=== PATIENT | male | born 1955 | race Caucasian/White ===

== ENCOUNTER 2020-05-08 07:27 | Outpatient (CLI) | payer BC, SELFPAY ==
--- NOTE | ~2020-05-08 | US_ITS ---
US abdomen complete EXAMINATION: US Abdomen Complete INDICATION: Abdomen pain PROCEDURE: Realtime High Resolution abdomen ultrasound. COMPARISON: No prior studies for comparison FINDINGS: There are gallstones with gallbladder wall thickening. Common bile duct measures 7.3 mm. Liver echotexture is increased, consistent with fatty infiltration with sparing at the gallbladder fo ssa.. Pancreas within normal limits. Pancreatic tail is obscured by bowel gas. Spleen is unremarke able. Renal echotexture is within normal limits bilaterally without hydronephrosis, contour deforming mass or renal stone. Right kidney measures 10.8 cm. Left kidney measures 10.8 cm. Visualized aspects of the aorta and IVC are within normal limits. Portal vein is patent. No sonograph ic Talley's sign indicated by the technologist. IMPRESSION: 1: Cholelithiasis with mild gallbladder wall thickening and positive sonographic Talley sign as well as mildly dilated common duct. Findings suspicious for cholecystitis. Correlate clinically. 2: Hepatic steatosis. Reviewed, dictated and finalized at location A. IMPRESSION: 1: Cholelithiasis with mild gallbladder wall thickening and positive sonographi c Talley sign as well as mildly dilated common duct. Findings suspicious for ch olecystitis. Correlate clinically. 2: Hepatic steatosis.
[2020-05-08 08:23] LABS: Basophils Absolute Auto 0.1 K/mm3 (0.0-0.1); Basophils Percent Auto 0.5 % (0.2-1.2); Eosinophils Absolute Auto 0.3 K/mm3 (0-0.3); Eosinophils Percent Auto 2.2 % (0-4.4); Hematocrit 39.2 % (42.0-52.0); Immature Granulocyte Absolute 0.05 K/mm3 (0.00-0.031); Immature Granulocyte Percent A 0.4 % (0-0.5); Lymphocytes Absolute Auto 2.23 K/mm3 (0.9-3.2); Lymphocytes Percent Auto 18.5 % (18.3-44.2); Mean Corpuscular HGB Conc 33.2 g/dl (32-36); Mean Corpuscular Volume 84.5 fl (80-100); Mean Platelet Volume 10.2 fl (7.4-10.4); Monocytes Percent Auto 8.3 % (2.6-8.5); Neutrophils Absolute Auto 8.5 K/mm3 (1.3-6.7); Neutrophils Percent Auto 70.1 % (45.5-73.1); Platelet Count Result 262 k/mm3 (150-375); Red Blood Count 4.64 M/mm3 (4.6-6.20); Red Cell Distribution Width 13.8 % (11.5-14.5); White Blood Count 12.1 K/mm3 (4.5-10.0)
[2020-05-08 08:34] LABS: Alanine Aminotransferase 277 U/L (4-50); Alkaline Phosphatase 166 U/L (38-126); Amylase 54 U/L (30-110); Anion Gap 8 mmol/L (8-16); Aspartate Amino Transferase 47 U/L (17-59); Bilirubin,Total 0.7 mg/dL (0.2-1.3); Blood Urea Nitrogen 13 mg/dL (9-20); Calcium 9.1 mg/dL (8.4-10.2); Carbon Dioxide 25 mmol/L (22-30); Chloride 106 mmol/L (98-107); Estimated Glomerular Filt Rate > 60; Glucose 110 mg/dL (75-110); Lipase 94 U/L (23-300); Potassium 3.8 mmol/L (3.4-5.0); Sodium 139 mmol/L (137-145)
== END 2020-05-08 07:28 | disposition home or self-care (01) ==
PROVIDERS: PCP Family Medicine; Visit Provider Nurse Practitioner Family
DX: R10.10 Upper abdominal pain, unspecified (principal); R50.9 Fever, unspecified
CPT/HCPCS: 36415; 76700; 80053; 82150; 83690; 85025

== ENCOUNTER 2020-05-14 12:48 | Outpatient (CLI) | payer BC, SELFPAY ==
--- NOTE | 2020-05-14 13:26 | ECG_ITS ---
Measurements Intervals [place] Rate: 63 P: -6 OR: 146 QRS: 20 QRSD: 102 T: 13 QT: 381 QTc: 392 Interpretive Statements SINUS RHYTHM BASELINE ARTIFACT- I, II, AVR, AVF, V6 NORMAL ECG Electronically Signed On 05-14-2020 13:36:50 CDT by Saman Villagran D.O.
[2020-05-14 13:58] LABS: Alanine Aminotransferase 57 U/L (4-50); Albumin Level 4.4 g/dL (3.5-5.1); Alkaline Phosphatase 142 U/L (38-126); Amylase 74 U/L (30-110); Aspartate Amino Transferase 30 U/L (17-59); Bilirubin,Total 0.3 mg/dL (0.2-1.3); Lipase 238 U/L (23-300)
== END 2020-05-14 12:49 | disposition home or self-care (01) ==
PROVIDERS: PCP Family Medicine; Visit Provider Surgery
DX: Z01.818 Encounter for other preprocedural examination (principal); K80.00 Calculus of gallbladder with acute cholecystitis without obstruction
CPT/HCPCS: 36415; 80076; 82150; 83690; 86850; 86900; 86901; 93005

== ENCOUNTER 2020-05-15 01:56 | Day surgery (SDC) | payer BC, SELFPAY ==
[2020-05-14 13:15] VITALS: BMI 37.0
[2020-05-14 13:22] VITALS: BP 125/69; PULSE 67; RESP 16; TEMP 36.9; O2SAT 98
[2020-05-14 13:30] VITALS: BP 125/69; PULSE 67; RESP 16; TEMP 36.8; O2SAT 98
[2020-05-15] VITALS (7 sets, daily range): BP systolic 120–164; BP diastolic 62–101; PULSE 64–81; RESP 12–16; TEMP 36.4–36.5; O2SAT 95–100
[2020-05-15] MEDS: ACETAMINOPHEN 500 MG TABLET 1000 MG PO (07:44)
[2020-05-15] MEDS: LACTATED RINGERS 1,000 ML 30 ML IV CONT (07:46)
[2020-05-15] MEDS: KETOROLAC 15 MG/ML VIAL (*BKC) IV PUSH (07:47)
--- NOTE | 2020-05-15 08:03 | WPDANESEPPF ---
Anes - Initial Pre Proc Eval Procedure: Operation Date: 05/15/20 08:30 Proposed Procedures p Laparoscopic Cholecystectomy - Danny Maharaj MD Date/Time: 05/15/20 08:03 Surgeon: Danny Maharaj MD Pre Op Diagnosis: acute cholecystitis with cholelithiasis Patient Data Age: 64 Gender: M Height: 5 ft 8 in Weight: 110.7 kg Last Vital Signs Temp 98.2 F 05/14/20 13:30 Pulse 67 05/14/20 13:30 Resp 16 05/14/20 13:30 BP 125/69 05/14/20 13:30 Pulse Ox 98 05/14/20 13:30 Allergies Allergy/AdvReac Type Severity Reaction Status Date / Time No Known Allergies Allergy Verified 05/15/20 07:35 Home Medications Medication Instructions Recorded Confirmed Type No Home Medications 05/07/20 05/15/20 History Patient hx anesthesia problems: none Family hx anesthesia problems: none PMFSH Past Medical History Medical History No pertinent past medical history Surgical History Surgical History History of colonoscopy History of right hip replacement Family History Family History Sibling Diabetes mellitus Grandparent Diabetes mellitus Social History Social History Smoking status: Never smoker Alcohol intake: never Substance use: never Living arrangements: with family Additional occupation/education comments: Teacher Gender identity (if verbalized by the patient): Male Spiritual care concerns: No Anes - Eval Final PreProcedure Day of Procedure 05/15/20 08:03 Patient weight: obese Heart: regular rate and rhythm Lungs: clear to auscultation Airway: Mallampati scale class III Neurological: alert and oriented Last oral intake: >/= 8 hours ASA classification: II Emergent: no Anesthetic plan: proceed Anesthesia type and monitoring: general ETT and standard monitoring Informed Consent: The patient's anesthetic plan and its attendant risks and benefits were discussed with the patient/family/POA. Questions were solicited and answers provided to the satisfaction of the patient/family/POA.
--- NOTE | 2020-05-15 08:09 | WPDHPUPDATE1 ---
History and Physical Update Update Date/Time: 05/15/20 08:09 History and Physical has been reviewed, including an updated exam of the patient. There are NO changes in the patient's condition. Risks, benefits, and alternatives have been discussed and questions answered. Patient agrees to proceed with procedure.
[2020-05-15] MEDS: ceFAZolin 2 GM/D5W 50 ML 2 GM/50 ML BAG IVPB (08:18)
[2020-05-15] MEDS: BUPIVACAINE/EPINEPHRINE 0.5% 30 ML VIAL INFILTRATE (08:57)
--- NOTE | 2020-05-15 09:36 | P.OP_ITS ---
Procedure Note - Detailed Date of procedure: 05/15/20 Pre-op diagnosis: acute cholecystitis with cholelithiasis Cholecystitis, cholelithiasis Post-op diagnosis: same Procedure performed: Laparoscopic cholecystectomy Description of procedure: The patient was taken to surgery and induced into general anesthesia. The abdomen was prepped and draped. Trocars were placed in the usual fashion using 0.5% Marcaine with epinephrine and applied Medical optical trocars. A 5 millimeter camera was used. The gallbladder was decompressed with a laparoscopic aspirator. The cholecystotomy was closed with a Vicryl endo-loop. There was surprisingly little inflammation in the gallbladder. Some edema suggestive of acute inflammation was evident but no severe inflammation at all. No large stones were evident and in fact I really could not see any stones although the gallbladder was not opened. The gallbladder was retracted anterosuperiorly. Traction was placed on the infundibulum. The cystic duct and cystic artery were dissected out very clearly. The gallbladder was dissected off the liver at its lower 3rd. Critical view was achieved. We securely clipped and divided the cystic duct and cystic artery. The gallbladder was then further retracted so that the peritoneal attachments to the liver could be divided. Once the gallbladder was freed entirely, it was placed in an Endo-Catch bag and retrieved through the 10 11 epigastric trocar site. The epigastric trocar was then replaced. We reviewed the right upper quadrant. It was irrigated and suctioned. All looked good with no evidence of bleeding or bile leakage. We evacuated CO2 and removed the trocar sleeves. Skin wounds were closed with subcuticular 4 O Monocryl skin suture. The wounds were dressed with Exofin surgical adhesive. Patient was awakened and taken to recovery in good condition. Sponge and needle counts were correct x2. Anesthesia: GETA and local (0.5% Marcaine with epinephrine) Surgeon: Danny Maharaj MD Medical Physics Teacher: Carmen THOMAS Estimated blood loss (mL): 5 Drains: No Packing: No Pathology: yes (Gallbladder) Complications: None Condition: stable Disposition: PACU Findings: Mild chronic inflammation, no gallstones noted. No biliary ductal dilatation, hepatic steatosis noted.
== END 2020-05-15 10:40 | disposition home or self-care (01) ==
PROVIDERS: PCP Family Medicine; Visit Provider Surgery
PROC: 0FT44ZZ Resection of Gallbladder, Percutaneous Endoscopic Approach (ICD-10-PCS; CPT 47562; principal; 2020-05-15 08:30)
DX: K80.10 Calculus of gallbladder with chronic cholecystitis without obstruction (principal); E66.9 Obesity, unspecified; Z68.37 Body mass index [BMI] 37.0-37.9, adult
CPT/HCPCS: 47562; 36415; 80076; 82150; 83690; 86850; 86900; 86901; 88304; 93005; A9270; C1713; J0330; J0690; J1100; J1885; J2250; J2370; J2405; J2704; J2710; J3010; J7030; J7120

== ENCOUNTER → 2021-12-26 10:06 | Outpatient (CLI) | payer MEDICARE, SELFPAY ==
--- NOTE | ~2021-12-26 | XR_ITS ---
EXAMINATION: XR lumbar spine 2-3V DATE: 12/26/2021 10:23 INDICATION: Right flank pain TECHNIQUE: Anteroposterior and lateral views of the lumbar spine, and cone-down lateral view of the l umbosacral junction were obtained. COMPARISON: None. FINDINGS: There are 2 mm of anterolisthesis of L4 on L5 and 2 mm of retrolisthesis of L5 on S1. Verte bral body alignment is otherwise normal. The vertebral body heights are maintained. There is no fract ure. There is mild loss of intervertebral disc space height throughout the lumbar spine. Small degene rative osteophytes project from the anterior endplates of multiple vertebral bodies. There is severe facet joint osteoarthritis of the lower lumbar spine. Changes of total right hip arthroplasty are not ed. Surgical clips in the right upper quadrant are likely from prior cholecystectomy. Calcifications measuring 3 mm and 2 mm projecting over the right kidney likely reflect stones. There is a 3 mm calci fication projecting over the left kidney lower pole, also likely a stone. IMPRESSION: 1. Mild lumbar spondylosis without acute findings. 2. Probable bilateral nephrolithiasis. Reviewed, dictated and finalized at location B. TECHNICIAN
--- NOTE | ~2021-12-26 | XR_ITS ---
EXAMINATION: XR abdomen/kub 1V INDICATION: Right flank pain TECHNIQUE: Supine views of the abdomen were obtained on 2 radiographs. COMPARISON: None FINDINGS: Calcifications measuring 3 mm and 2 mm projecting over the right kidney likely reflect ston es. There is a 3 mm calcification projecting over the left kidney lower pole, also likely a stone. No definite stones are identified along the expected courses of the ureters. Surgical clips in the righ t upper quadrant are likely from prior cholecystectomy. There are changes of total right hip arthropl asty. The bowel gas pattern is normal. There is moderate osteoarthritis of the left hip. IMPRESSION: 1. Probable bilateral nephrolithiasis. Reviewed, dictated and finalized at location B. COMMUNICATIONS OPERATOR
== END ==
PROVIDERS: PCP Family Medicine; Visit Provider Nurse Practitioner Family
DX: M54.50 Low back pain, unspecified (principal); M47.816 Spondylosis without myelopathy or radiculopathy, lumbar region; R31.9 Hematuria, unspecified
CPT/HCPCS: 72100; 74018

== ENCOUNTER 2022-01-02 15:55 | Outpatient (CLI) | payer MEDICARE, SELFPAY ==
--- NOTE | ~2022-01-02 | CT_ITS ---
EXAMINATION: CT abdomen pelvis wo con DATE: 01/02/2022 16:13 INDICATION: Hematuria. Bilateral flank pain. TECHNIQUE: Computed tomography (CT) of the abdomen and pelvis was performed without intravenous contr ast. Automated exposure control and iterative reconstruction technique were employed. The dose-length product was 1529.94 mGy-cm. COMPARISON: None. FINDINGS: The visualized portions of the lung bases demonstrate minimal atelectasis. No pleural effus ion. The heart size is normal. There are coronary artery calcifications. No pericardial effusion. The liver is normal. There are changes of cholecystectomy. The spleen, pancreas, and adrenal glands are normal. There are 4 stones in right kidney measuring up to 7 mm. There are 1 mm and 4 mm stones in le ft kidney. There is an 8 mm cyst in left kidney. There is a 3 mm hemorrhagic cyst in left kidney. The prostate is mildly enlarged. There is a left inguinal hernia containing fat. There is diverticulosis of the colon without evidence of diverticulitis. The appendix is normal. There are no dilated loops of bowel. There are no pathologically enlarged lymph nodes. There is no free intraperitoneal fluid. T here is a total right hip arthroplasty. There is mild lumbar spondylosis. There are bridging endplate osteophytes at multiple levels in the thoracic spine, consistent with diffuse idiopathic skeletal hy perostosis (DISH). IMPRESSION: 1. Bilateral nonobstructing kidney stones. Reviewed, dictated and finalized at location A. T MANAGER
== END 2022-01-02 15:56 | disposition home or self-care (01) ==
LOC: ANHIMG 15:57
PROVIDERS: PCP Family Medicine; Visit Provider Nurse Practitioner Family
DX: R31.9 Hematuria, unspecified (principal); N20.0 Calculus of kidney
CPT/HCPCS: 74176

== ENCOUNTER 2022-01-27 08:52 | Outpatient (CLI) | payer MEDICARE, SELFPAY ==
[2022-01-27 09:57] LABS: Prothrombin Time 13.2 Seconds (11.1-14.7)
[2022-01-27 09:58] LABS: Partial Thromboplastin Time 27.1 SECONDS (22.3-36.8)
== END 2022-01-27 08:53 | disposition home or self-care (01) ==
PROVIDERS: PCP Family Medicine; Visit Provider Urology
DX: Z01.818 Encounter for other preprocedural examination (principal); N20.0 Calculus of kidney
CPT/HCPCS: 36415; 85610; 85730; 87086

== ENCOUNTER 2022-01-31 00:14 | Day surgery (SDC) | payer MEDICARE, SELFPAY ==
--- NOTE | 2022-01-23 09:42 | PC.NURSE ---
Report to the Outpatient Waiting Room, entrance under the green pavilion located off [address], at time __1100 on date __01/31/22 . Planned Procedure Time: _1300 . Time changes happen often and if your time is changed the preop area will call you the afternoon before. - You and your visitor will be asked to self-screen and do not enter if you have any COVID symptoms. - Only one visitor is requested with a max of two and NO children visitors are allowed at this time. - The patient visitor may be requested to leave or wait in car when not with patient due to distancing restrictions. - A mask is optional within the hospital. Patients may have clear liquids (water, carbonated beverages, clear teas, apple juice) until 3 hours prior to surgery with a maximum of 20 ounces. - No food from midnight until time of surgery - Infants may have breast milk until 4 hours before surgery, formula 6 hours prior to surgery. - Children will be allowed to drink immediately following surgery. If applicable, please bring a bottle or sippy cup to assist with drinking. Juice, water, soda, and popsicles are readily available. For infants on formula, please bring formula the day of surgery. Pacifiers are allowed. Take the following medications with a SIP of water the morning of surgery: __NONE Medications to discontinue per physician ____ALL VITAMINS 3 DAYS PRE OP Date to take last dose___01/27/22 Please no make-up, nail turkish, hairspray, perfume, deodorant, or body powder the day of surgery. No jewelry (including any body piercings) or valuables the day of surgery, leave them at home. Please take a shower or bath the night before, or the morning of, surgery with an antibacterial soap. Wear comfortable, loose fitting clothing. Children are encouraged to wear pajamas. - Jewelry must be removed prior to entering the operating room. Rings and piercings that are not removed may be cut off. - The hospital will not accept responsibility for valuables. - Please leave all valuables, including medications, at home the day of surgery. If you are going home after surgery, a licensed cdl flatbed truck driver must drive you home. - NO public transportation without another adult if you receive anesthesia. - We recommend that an adult stay with you for 24 hours following discharge. - We also recommend that you do not drive, make important decision, drink alcoholic beverages, or take any drugs that were not prescribed by your health care provider for at least 24 hours after your discharge time. Follow any additional instructions given to you from your surgeon. If you or anyone in your household have experienced Covid symptoms in the past week, please notify your surgeon or the nurse liaison at the phone number below for possible testing. Telephone instructions given to __PATIENT and asked if any additional questions and then verbalized understanding. Patient advised to call surgeon office or pre surgery nurse liaison [phone] if any additional questions.
[2022-01-23 09:51] VITALS: BMI 37.5
[2022-01-31] VITALS (8 sets, daily range): BP systolic 108–147; BP diastolic 59–75; PULSE 68–77; RESP 12–17; TEMP 36.4–37.5; O2SAT 97–98
--- NOTE | ~2022-01-31 | XR_ITS ---
EXAMINATION: XR abdomen/kub 1V DATE: 01/31/2022 10:12 INDICATION: Right kidney stone. TECHNIQUE: A supine view of the abdomen on 2 radiographs was obtained. COMPARISON: CT abdomen and pelvis 01/02/2022 FINDINGS: There are no dilated loops of bowel. There are 6 mm, 2 mm, and 4 mm stones in right kidney cyst. There is a total right hip arthroplasty. Surgical clips in the right upper quadrant are likely from cholecystectomy. IMPRESSION: 1. Right kidney stones. Reviewed, dictated and finalized at location A. OMER SERVICE REPRESENTATIVE TEACHER IMPRESSION: 1. Right kidney stones.
--- NOTE | 2022-01-31 07:16 | WPDHPUPDATE1 ---
History and Physical Update Update Date/Time: 01/31/22 07:16 History and Physical has been reviewed, including an updated exam of the patient. There are NO changes in the patient's condition. Risks, benefits, and alternatives have been discussed and questions answered. Patient agrees to proceed with procedure.
[2022-01-31] MEDS: LACTATED RINGERS 1,000 ML 30 ML IV CONT (10:30)
--- NOTE | 2022-01-31 11:16 | P.PNAN_ITS ---
Anes - Initial Pre Proc Eval Procedure: Operation Date: 01/31/22 12:00 Proposed Procedures p Right Extracorporeal Shock Wave Lithotripsy - Jordy Jones MD Date/Time: 01/31/22 11:16 Surgeon: Jordy Jones MD Pre Op Diagnosis: Kole Kidney Stones Patient Data Age: 66 Gender: M Height: 1.75 m Weight: 115.8 kg Last Vital Signs Temp 36.4 C L 01/31/22 10:24 Pulse 72 01/31/22 10:24 Resp 16 01/31/22 10:24 BP 147/74 H 01/31/22 10:24 Pulse Ox 98 01/31/22 10:24 O2 Del Method Room Air 01/31/22 10:24 Allergies Allergy/AdvReac Type Severity Reaction Status Date / Time No Known Allergies Allergy Verified 01/31/22 10:13 Home Medications Medication Instructions Recorded Confirmed Type multivit,Ca,min-iron 8 mg-folic 1 tablet PO DAILY 01/23/22 01/31/22 History acid 200 mcg-lycopene 600 mcg tablet (Centrum Men) Patient hx anesthesia problems: none Family hx anesthesia problems: none Results Review: All pre-operative results and documents have been reviewed as part of the pre- operative evaluation. [facility] Past Medical History Medical History Adult BMI 39.0-39.9 kg/sq m BMI 38.0-38.9,adult BMI greater than 40 No pertinent past medical history Surgical History Surgical History History of colonoscopy History of right hip replacement Hx laparoscopic cholecystectomy Family History Family History Sibling Diabetes mellitus Grandparent Diabetes mellitus Father Asthma Mother Tobacco abuse Social History Social History Smoking status: Never smoker Second hand tobacco smoke exposure: Yes Alcohol intake: never Substance use: never Substance use type: does not use Living arrangements: with family Additional occupation/education comments: Teacher Gender identity (if verbalized by the patient): Male Sexual Orientation (if Verbalized by the Patient): Straight or Heterosexual Spiritual care concerns: No Anes - Eval Final PreProcedure Day of Procedure 01/31/22 11:16 Patient weight: obese Heart: regular rate and rhythm Lungs: clear to auscultation Airway: Mallampati scale class II Neurological: alert and oriented Last oral intake: >/= 8 hours ASA classification: II Emergent: no Anesthetic plan: proceed Anesthesia type and monitoring: general LMA and standard monitoring Results Review: All pre-operative results and documents have been reviewed as part of the pre- operative evaluation. Informed Consent: The patient's anesthetic plan and its attendant risks and benefits were discussed with the patient/family/POA. Questions were solicited and answers provided to the satisfaction of the patient/family/POA.
[2022-01-31] MEDS: ceFAZolin 2 GM/D5W 50 ML 2 GM/50 ML BAG IVPB (11:24)
--- NOTE | 2022-01-31 11:47 | W.PM.PROC2 ---
Procedure Note - Detailed Date of Procedure 01/31/22 Pre-op Diagnosis Kole Kidney Stones Post-op Diagnosis Same Procedure Performed Right ESWL Surgeon Jordy Jones MD Anesthesia General Description of Procedure The patient was brought to the operative suite where he was placed in the supine position on the Dornier lithotripsy table. The focal point of the lithotripter was placed at a 6mm right renal calculus. A total of 2500 shocks were delivered at a power setting of 4. There appeared to be good fragmentation of the stone. Careful inspection of other areas in right kidney failed to show additional stones. The patient tolerated the procedure well and was taken to the recovery room in good condition. Drains No Packing No Pathology None sent Complications No immediate complications Condition Stable
== END 2022-01-31 13:50 | disposition home or self-care (01) ==
PROVIDERS: PCP Family Medicine; Visit Provider Urology
PROC: (CPT 50590; principal; 2022-01-31 12:00)
DX: N20.0 Calculus of kidney (principal)
CPT/HCPCS: 50590; 74018; J0690; J1100; J2250; J2405; J2704; J7120

== ENCOUNTER 2023-01-29 10:35 | Outpatient (CLI) | payer MEDICARE, SELFPAY ==
--- NOTE | ~2023-01-29 | XR_ITS ---
Right Knee Technique: AP, lateral, and sunrise views were obtained. Clinical History: Arthritis Findings: No fracture or dislocation is seen. There is severe degenerative change of the medial jase rtment, with medial joint osteophyte formation and medial compartment narrowing. There is moderate de generative change of the patellofemoral compartment. There is mild degenerative change of the lateral compartment. Soft tissues are unremarkable. No joint effusion is seen. Impression: Tricompartmental osteoarthritis, as detailed above, worst in the medial compartment. Reviewed, dictated and finalized at location M. LE PERSON Impression: Tricompartmental osteoarthritis, as detailed above, worst in the medial compart ment.
--- NOTE | ~2023-01-29 | XR_ITS ---
Left Knee Technique: AP, lateral, and sunrise views were obtained. Clinical History: Arthritis Findings: No fracture or dislocation is seen. There is severe degenerative change of the medial jase rtment, with medial joint space narrowing and severe medial joint line osteophyte formation. There is moderate spurring of the lateral joint line and patellofemoral compartment.. Prominent subchondral o ssify present at the lateral femoral condyle Soft tissues are unremarkable. No joint effusion is seen . Impression: Advanced tricompartmental osteoarthritis, as detailed above, worst in the medial compartment. Reviewed, dictated and finalized at location M. LATORY LAW SPECIALIST Impression: Advanced tricompartmental osteoarthritis, as detailed above, worst in the media l compartment.
== END 2023-01-29 10:36 | disposition home or self-care (01) ==
PROVIDERS: PCP Family Medicine; Visit Provider Family Medicine
DX: M17.0 Bilateral primary osteoarthritis of knee (principal)
CPT/HCPCS: 73564

== ENCOUNTER 2023-03-11 12:21 | Outpatient (CLI) | payer MEDICARE, SELFPAY ==
--- NOTE | ~2023-03-11 | CT_ITS ---
EXAMINATION: CT LE LT wo con DATE: 03/11/2023 13:14 INDICATION: Left knee osteoarthritis. Preoperative planning. TECHNIQUE: Computed tomography (CT) of the left lower limb was performed without intravenous contrast . Automated exposure control and iterative reconstruction technique were employed. The dose-length pr oduct was 1752.29 mGy-cm. COMPARISON: Left knee radiographs 01/29/2023 FINDINGS: There is varus angulation at the knee. No fracture. There is severe osteoarthritis of the m edial and patellofemoral compartments and moderate osteoarthritis of lateral compartment. No knee laurel nt effusion. There is moderate left hip osteoarthritis. IMPRESSION: 1. Severe left knee osteoarthritis. 2. Moderate left hip osteoarthritis. Reviewed, dictated and finalized at location E. OSOPHY LECTURER
--- NOTE | 2023-03-11 13:23 | ECG_ITS ---
Measurements Intervals [place] Rate: 64 P: 8 SD: 148 QRS: 28 QRSD: 103 T: 25 QT: 390 QTc: 404 Interpretive Statements SINUS RHYTHM NORMAL ECG COMPARED TO ECG 05/14/2020 14:00:35 NO SIGNIFICANT CHANGES Electronically Signed On 03-11-2023 13:43:34 INVESTOR RELATIONS ASSOCIATE by Saman Villagran D.O.
[2023-03-11 14:08] LABS: Hematocrit 44.3 % (42.0-52.0); Hemoglobin 14.5 g/dL (14.0-18.0)
[2023-03-11 14:27] LABS: Albumin Level 4.6 g/dL (3.5-5.1); Estimated Glomerular Filt Rate > 60; Glucose 91 mg/dL (65-110)
== END 2023-03-11 12:22 | disposition home or self-care (01) ==
LOC: ANHIMG 12:28
PROVIDERS: PCP Family Medicine; Visit Provider Orthopaedic Surgery
DX: J40 Bronchitis, not specified as acute or chronic (principal); M17.12 Unilateral primary osteoarthritis, left knee; M16.12 Unilateral primary osteoarthritis, left hip
CPT/HCPCS: 36415; 73700; 82040; 82565; 82947; 85014; 85018; 93005

== ENCOUNTER 2023-05-20 11:44 | Outpatient (CLI) | payer MEDICARE, SELFPAY ==
[2023-05-20 12:50] LABS: Basophils Percent Auto 0.5 % (0.2-1.2); Eosinophils Absolute Auto 0.1 K/mm3 (0-0.3); Eosinophils Percent Auto 2.3 % (0-4.4); Hemoglobin 14.8 g/dL (14.0-18.0); Immature Granulocyte Absolute 0.02 K/mm3 (0.00-0.031); Immature Granulocyte Percent A 0.3 % (0-0.5); Lymphocytes Absolute Auto 2.28 K/mm3 (0.9-3.2); Lymphocytes Percent Auto 37.3 % (18.3-44.2); Mean Corpuscular HGB Conc 32.2 g/dl (32-36); Mean Corpuscular Hemoglobin 28.8 pg (26-34); Mean Corpuscular Volume 89.5 fl (80-100); Mean Platelet Volume 10.1 fl (7.4-10.4); Monocytes Absolute Auto 0.5 K/mm3 (0.1-0.6); Monocytes Percent Auto 8.8 % (2.6-8.5); Neutrophils Absolute Auto 3.1 K/mm3 (1.3-6.7); Neutrophils Percent Auto 50.8 % (45.5-73.1); Platelet Count Result 275 k/mm3 (150-375); Red Blood Count 5.14 M/mm3 (4.6-6.20); Red Cell Distribution Width 12.9 % (11.5-14.5); White Blood Count 6.1 K/mm3 (4.5-10.0)
[2023-05-20 13:04] LABS: Albumin Level 4.6 g/dL (3.5-5.1); Estimated Glomerular Filt Rate > 60; Glucose 89 mg/dL (65-110)
[2023-05-20 13:07] LABS: Urine Cotinine NEGATIVE
[2023-05-20 14:00] LABS: MRSA (PCR) NOT DETECTED (NOT DETECTE)
[2023-05-21 01:00] LABS: Hemoglobin A1C 5.4 % (<5.7)
== END 2023-05-20 11:45 | disposition home or self-care (01) ==
LOC: ANHSURGERY 11:49
PROVIDERS: PCP Family Medicine; Visit Provider Orthopaedic Surgery
DX: Z01.818 Encounter for other preprocedural examination (principal); M17.12 Unilateral primary osteoarthritis, left knee
CPT/HCPCS: 80307; 82040; 82565; 82947; 83036; 85025; 87641

== ENCOUNTER 2023-06-15 02:29 | Day surgery (SDC) | payer MEDICARE, SELFPAY ==
[2023-05-20 11:54] VITALS: BMI 35.4
--- NOTE | 2023-05-20 12:12 | PC.NURSE ---
Report to the Outpatient Waiting Room, entrance under the green pavilion located off [facility], at time __1000 on date __06/15/23 . Planned Procedure Time: __1200 . Time changes happen often and if your time is changed the preop area will call you the afternoon before. - You and your visitor will be asked to self-screen and do not enter if you have any COVID symptoms. - A mask is optional within the hospital at this time. Patients may have clear liquids (water, carbonated beverages, clear teas, apple juice) until 3 hours prior to surgery( 9:00 AM) with a maximum of 20 ounces. - No food from midnight until time of surgery - Infants may have breast milk until 4 hours before surgery, formula 6 hours prior to surgery. - Children will be allowed to drink immediately following surgery. If applicable, please bring a bottle or sippy cup to assist with drinking. Juice, water, soda, and popsicles are readily available. For infants on formula, please bring formula the day of surgery. Pacifiers are allowed. Take the following medications with a SIP of water the morning of surgery: ____NONE DO NOT STOP ANY OF YOUR OTHER PRESCRIPTION MEDICATIONS PRIOR TO SURGERY ?EXCEPT THE FOLLOWING Medications to discontinue per physician ____MAY TAKE TYLENOL IF NEEDED FOR PAIN Please no make-up, nail kuwaiti, hairspray, perfume, deodorant, or body powder the day of surgery. No jewelry (including any body piercings) or valuables the day of surgery, leave them at home. Please take a shower or bath the night before, or the morning of, surgery with an antibacterial soap. Wear comfortable, loose fitting clothing. Children are encouraged to wear pajamas. - Jewelry must be removed prior to entering the operating room. Rings and piercings that are not removed may be cut off. - The hospital will not accept responsibility for valuables. - Please leave all valuables, including medications, at home the day of surgery. If you are going home after surgery, a licensed tractor trailer truck driver must drive you home. - NO public transportation without another adult if you receive anesthesia. - We recommend that an adult stay with you for 24 hours following discharge. - We also recommend that you do not drive, make important decision, drink alcoholic beverages, or take any drugs that were not prescribed by your health care provider for at least 24 hours after your discharge time. Follow any additional instructions given to you from your surgeon. If you or anyone in your household have experienced Covid symptoms in the past week, please notify your surgeon or the nurse liaison at the phone number below for possible testing. VERBAL AND WRITTEN instructions given to __PATIENT AND SPOUSE CINDY and asked if any additional questions and then verbalized understanding. Patient advised to call surgeon office or pre surgery nurse liaison [phone] if any additional questions.
[2023-05-20 12:32] VITALS: BP 146/83; PULSE 65; RESP 18; TEMP 36.7; O2SAT 98
[2023-06-15] VITALS (12 sets, daily range): BP systolic 109–161; BP diastolic 40–80; PULSE 65–91; RESP 12–20; TEMP 36.2–36.7; O2SAT 94–100
--- NOTE | ~2023-06-15 | XR_ITS ---
EXAMINATION: [id number]_[id number]_CR DATE: 06/15/2023 15:34 CDT INDICATION: Left total knee arthroplasty TECHNIQUE: 2 views left knee FINDINGS: There is a left total knee arthroplasty in expected position. Subcutaneous gas with fluid and air in the joint and overlying skin seble are consistent with recent surgery. No evidence of pe riprosthetic fracture. IMPRESSION: 1. Recent left total knee arthroplasty. Reviewed, dictated and finalized at location B.
[2023-06-15] MEDS: LACTATED RINGERS 1,000 ML 30 ML IV CONT ×2 (11:00→15:12)
[2023-06-15] MEDS: ACETAMINOPHEN 500 MG TABLET 1000 MG PO (11:14)
[2023-06-15] MEDS: TRANEXAMIC ACID 1,000MG/ISO100 1,000 MG/100 ML BAG 200 MG IVPB (11:14)
--- NOTE | 2023-06-15 11:23 | WPDHPUPDATE1 ---
History and Physical Update Update Date/Time: 06/15/23 11:23 History and Physical has been reviewed, including an updated exam of the patient. There are NO changes in the patient's condition. Risks, benefits, and alternatives have been discussed and questions answered. Patient agrees to proceed with procedure.
--- NOTE | 2023-06-15 11:34 | WPDANESEPPF ---
Anes - Initial Pre Proc Eval Procedure: Operation Date: 06/15/23 12:00 Proposed Procedures p Left Custom Total Knee Arthroplasty - Mayito Matias MD Date/Time: 06/15/23 11:34 Surgeon: Mayito Matias MD Pre Op Diagnosis: Prim OA Lt Knee Patient Data Age: 67 Gender: M Height: 1.73 m Weight: 106.1 kg Last Vital Signs Temp 36.2 C L 06/15/23 11:11 Pulse 65 06/15/23 11:11 Resp 16 06/15/23 11:11 BP 144/73 H 06/15/23 11:11 Pulse Ox 97 06/15/23 11:11 O2 Del Method Room Air 06/15/23 11:11 Allergies Allergy/AdvReac Type Severity Reaction Status Date / Time No Known Allergies Allergy Verified 06/15/23 10:25 Home Medications Medication Instructions Recorded Confirmed Type acetaminophen 500 mg capsule 1,000 mg PO Q6H PRN Pain 05/20/23 06/15/23 History aspirin 81 mg tablet,delayed 81 mg PO BID 14 days #28 tabs 06/15/23 Rx release meloxicam 15 mg tablet 15 mg PO DAILY #30 tabs 06/15/23 Rx oxycodone-acetaminophen 5 mg-325 1 - 2 tablet PO Q4-6H PRN pain #30 06/15/23 Rx mg tablet tabs prednisone 5 mg tablet 5 mg PO DAILY 3 weeks #21 tabs 06/15/23 Rx Patient hx anesthesia problems: none Family hx anesthesia problems: none Results Review: All pre-operative results and documents have been reviewed as part of the pre-operative evaluation. [facility] Past Medical History Medical History Adult BMI 39.0-39.9 kg/sq m BMI 38.0-38.9,adult BMI greater than 40 Bronchitis No pertinent past medical history Osteoarthritis of left knee Osteoarthritis of right knee Surgical History Surgical History History of colonoscopy History of right hip replacement Hx laparoscopic cholecystectomy Family History Family History Sibling Diabetes mellitus Grandparent Diabetes mellitus Father Asthma Cancer Mother Tobacco abuse Lung cancer Social History Social History Smoking status: Never smoker Second hand tobacco smoke exposure: Yes Additional smoking assessment comments: DENIES ANY FORM OF TOBACCO USE Alcohol intake: never Substance use: never Substance use type: does not use Do You Feel Safe in your Home?: Yes Lack of Transportation: No Lack of Food: Never True Current Housing: I Have Housing Concerned About Future Housing: No Difficulty Paying Gas/Electric Bills: No Difficulty Paying for Meds: No Currently Unemployed: No Education: Master's Degree or Higher Difficulty w/ Childcare or Family Care: No Living arrangements: with family Occupation/Education: 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 (if verbalized by the patient): Male Sexual Orientation (if Verbalized by the Patient): Straight or Heterosexual Spiritual care concerns: No Anes - Eval Final PreProcedure Day of Procedure 06/15/23 11:34 Patient weight: obese Heart: regular rate and rhythm Lungs: clear to auscultation Airway: Mallampati scale class II Neurological: alert and oriented Last oral intake: >/= 8 hours ASA classification: II Emergent: no Anesthetic plan: proceed Anesthesia type and monitoring: general LMA and standard monitoring Results Review: All pre-operative results and documents have been reviewed as part of the pre-operative evaluation. Informed Consent: The patient's anesthetic plan and its attendant risks and benefits were discussed with the patient/family/POA. Questions were solicited and answers provided to the satisfaction of the patient/family/POA.
[2023-06-15] MEDS: ceFAZolin 2 GM/D5W 50 ML 2 GM/50 ML BAG IVPB ×2 (12:09→20:51)
--- NOTE | 2023-06-15 12:20 | WPDANESPNB ---
Anes - Peripheral Nerve Block Date/Time: 06/15/23 12:20 I have discussed with the patient/family/POA the placement of a peripheral nerve block for post-operative pain management, including associated risks, benefits, complications, and side effects. Alternative methods of post-operative analgesia were detailed. Questions were solicited and answers provided to the satisfaction of the patient/family/POA. Time-Out: A pre-procedural Time-Out was completed immediately before starting the procedure and confirmed: Patient Identification, Site, Procedure, Patient Position and the Availability of Requisite Equipment. Clinical Indications: Acute post-operative pain management requested by the operative surgeon. Nerve Block Insertion Note Anes-nerve block: adductor canal left Patient position: supine Skin prep: chlorhexidine Needle: 22 gauge, stimulating, insulated echogenic needle. Needle length: 80 mm Technique: ultrasound Injectate: bupivacaine 0.5% with epi 5 mcg/ml (30 no epi) Observations: tolerated well Complications: none Procedure start time:: 1155 Procedure end time:: 1202
[2023-06-15] MEDS: SODIUM CHLORIDE 0.9% IV 37.7 ML, MORPHINE SULFATE INJ (*CRX) 2 MG, ROPivacaine HCL 1% 2... INFILTRATE (12:41)
[2023-06-15] MEDS: GENTAMICIN BONE CEMENT REFOBACIN 1 EACH TOPICAL (14:20)
[2023-06-15] MEDS: TRANEXAMIC ACID 1,000 MG/10 ML AMPUL 1000 MG IV PUSH (14:50)
--- NOTE | 2023-06-15 16:50 | W.PM.PROC2 ---
Procedure Note - Detailed Date of Procedure 06/15/23 Pre-op Diagnosis Prim OA Lt Knee Post-op Diagnosis Same Procedure Performed Total knee arthroplasty, left. Surgeon Mayito Matias MD Anesthesia General and Regional (Subsartorial block.) Findings Moderate contracture. Varus deformity. No releases required. Description of Procedure Preoperative antibiotics were given. The limb was prepped and draped in the usual sterile fashion with a well-padded tourniquet high on the thigh. The limb was exsanguinated and the tourniquet inflated to 300 mmHg. A longitudinal incision was created just medial to the patella. A trivector approach to the knee was performed. Arthrotomy was taken down through the joint capsule. No significant releases were initially taken. The femur was exposed and the F1 jig was applied. The coring tool was used to remove the cartilage for the F2 jig to sit flush with the bone. The jig was pinned and the distal cut carefully taken. Caliper measurements confirmed appropriate bony resections according to the preoperative templated plan. The F4 cutting jig for the femur was applied, at the standard rotation. The AP and anterior chamfer cuts were taken. The F5 jig was applied and the posterior chamfer cuts were taken. The tibia was prepared using the T1 jig, after removing cartilage for the jig contact points. Proper alignment was checked with the alignment han. The tibia was cut using the T1u guide. Gap balancing was performed. Gap measurements were taken and the knee was trialed. Excellent alignment and soft tissue balancing was confirmed. The posterior cruciate ligament was recessed along the proximal tibia. The patella was cut for resurfacing. Three lug holes were drilled. Meniscal remnants were removed. The trial components were assembled. Excellent range of motion and proper soft tissue balancing were confirmed throughout the full range of motion. Patellar tracking was excellent. The knee was copiously irrigated periodically throughout the procedure. The real implants were cemented into position. Excess cement was carefully removed. The wound was closed in layers with interrupted #1 Vicryl suture, 2-0 strata fix suture, 0 strata fix suture, 2-0 strata fix suture. Steri-Strips placed on the skin with the knee flexed. Sterile bulky dressing applied. The patient was brought to the recovery room in stable condition. There were no complications. Implants Conformis Custom total knee arthroplasty. Cemented. Cruciate retaining. 6C insert. 38 mm oval patella. Estimated Blood Loss 50 Drains No Complications No immediate complications Condition Stable Disposition PACU [facility] Billing Surgery - Charge Forward: Surgery Billing
--- NOTE | 2023-06-15 16:54 | ADMGEN ---
This patient, Rodrick Harding, was admitted to Medical Room 345-01. Patient/family oriented to hospital policies and general routines including ID bracelet, bed and alarms, visiting hours, pain management, procedures, bathroom and other care routines, personal items, smoking policy, room service/diet, and visiting hours. Information on how to activate the Rapid Response Team has been discussed. Patient/Family are encouraged to report perceived risks to care and to ask questions if they do not understand what they are told or what they should do.
[2023-06-15] MEDS: ACETAMINOPHEN 325 MG TABLET 650 MG PO ×2 (18:08→23:12)
[2023-06-15] MEDS: ASPIRIN 81 MG ENTERIC TABLET PO (18:08)
[2023-06-15] MEDS: MELOXICAM 7.5 MG TABLET PO (18:09)
[2023-06-15] MEDS: predniSONE 5 MG TABLET PO (18:09)
[2023-06-15] MEDS: SENNA/DOCUSATE SODIUM TABLET 2 TAB PO (18:09)
[2023-06-15] MEDS: FAMOTIDINE 20 MG TABLET PO (20:51)
[2023-06-16] MEDS: ceFAZolin 2 GM/D5W 50 ML 2 GM/50 ML BAG IVPB ×2 (03:37→12:07)
[2023-06-16 05:41] VITALS: BP 137/59; PULSE 71; RESP 18; TEMP 36.3; O2SAT 96
[2023-06-16 05:44] LABS: Basophils Percent Auto 0.1 % (0.2-1.2); Hematocrit 39.1 % (42.0-52.0); Hemoglobin 12.6 g/dL (14.0-18.0); Immature Granulocyte Absolute 0.07 K/mm3 (0.00-0.031); Immature Granulocyte Percent A 0.5 % (0-0.5); Lymphocytes Absolute Auto 0.89 K/mm3 (0.9-3.2); Lymphocytes Percent Auto 5.7 % (18.3-44.2); Mean Corpuscular HGB Conc 32.2 g/dl (32-36); Mean Corpuscular Hemoglobin 28.6 pg (26-34); Mean Corpuscular Volume 88.9 fl (80-100); Mean Platelet Volume 10.1 fl (7.4-10.4); Monocytes Percent Auto 6.1 % (2.6-8.5); Neutrophils Absolute Auto 13.6 K/mm3 (1.3-6.7); Neutrophils Percent Auto 87.6 % (45.5-73.1); Platelet Count Result 246 k/mm3 (150-375); White Blood Count 15.5 K/mm3 (4.5-10.0)
[2023-06-16 05:57] LABS: Anion Gap 8 mmol/L (4-12); Blood Urea Nitrogen 20 mg/dL (9-20); Calcium 9.2 mg/dL (8.4-10.2); Carbon Dioxide 23 mmol/L (22-30); Chloride 106 mmol/L (98-107); Estimated CRCL calculation 69 ml/min; Estimated Glomerular Filt Rate > 60; Glucose 138 mg/dL (65-110); Potassium 4.6 mmol/L (3.4-5.0); Sodium 137 mmol/L (137-145)
[2023-06-16] MEDS: ACETAMINOPHEN 325 MG TABLET 650 MG PO ×2 (06:15→12:07)
[2023-06-16] MEDS: polyethylene glycoL 3350 17 GM POWD.PACK PO (09:35)
[2023-06-16] MEDS: ASPIRIN 81 MG ENTERIC TABLET PO (09:35)
[2023-06-16] MEDS: MELOXICAM 7.5 MG TABLET PO (09:35)
[2023-06-16] MEDS: SENNA/DOCUSATE SODIUM TABLET 2 TAB PO (09:35)
[2023-06-16] MEDS: FAMOTIDINE 20 MG TABLET PO (09:35)
[2023-06-16] MEDS: traMADol HCL (*CRX) 50 MG TABLET PO (09:37)
--- NOTE | 2023-06-16 10:04 | PM.DS ---
DS: Admitting Diagnosis Discharge Date 06/16/23 Admitting Diagnosis Knee arthritis. DS: Discharge Diagnosis Discharge Diagnosis (1) Status post total left knee replacement: Code(s): Z96.652 - Presence of left artificial knee joint Status: Acute Assessment and Plan: Postop day 1: Left total knee arthroplasty. Patient tolerated procedure well. No complications. Pain manageable with pain medication. No numbness or tingling. We had a lengthy discussion regarding postoperative wound care, limitations, expectations, and exercises. Patient shows good understanding. He has had initial physical therapy and is tolerating it well. DVT prophylaxis: 81 mg baby aspirin b.i.d. for 14 days. Pain medication: Percocet. Patient has followup appointment with Dr. Matias in 3 weeks. DS: Summary Hospital Course Reason for hospitalization: Total knee arthroplasty Hospital Course: Patient tolerated procedure well. Has had initial PT/OT. Status at Discharge Functional status at discharge: uses cane/walker Overall status at discharge: patient is progressing back to baseline Time Spent with Patient Time attestation: Total time spent providing and/or coordinating discharge services: Exam Narrative: 67-year-old overweight male. Resting comfortably in chair. Alert and oriented x3. No acute distress. Wearing compression socks bilaterally. Dressing intact without drainage. This has not changed since yesterday. Mild swelling. No ecchymosis. No erythema. No hematoma. Range of motion limited due to pain. Calf nontender. Neurologic status intact. No varicosities. Distal pulses palpable. DS: Data Data Completed and Pending Labs on day of discharge: Labs from last 24 hours 06/16/23 06/15/23 05:32 10:53 WBC 15.5 H RBC 4.40 L Hgb 12.6 L Hct 39.1 L MCV 88.9 MCH 28.6 MCHC 32.2 RDW 13.0 Plt Count 246 MPV 10.1 Immature Gran % (Auto) 0.5 Neut % (Auto) 87.6 H Lymph % (Auto) 5.7 L [place] % (Auto) 6.1 Eos % (Auto) 0.0 Baso % (Auto) 0.1 L Lymph # (Auto) 0.89 L [place] # (Auto) 1.0 H Eos # (Auto) 0.0 Baso # (Auto) 0.0 Abs Immat Gran (auto) 0.07 H Absolute Neuts (auto) 13.6 H Absolute Nucleated RBC 0.000 Nucleated RBC % 0.0 Sodium 137 Potassium 4.6 Chloride 106 Carbon Dioxide 23 Anion Gap 8 BUN 20 Creatinine 1.10 Estim Creat Clear Calc 69 Estimated GFR > 60 Glucose 138 H Calcium 9.2 Blood Type A Positive Antibody Screen Negative Discharge Plan Discharge Patient Disposition: Home, Self-Care Discharge Instructions: See green instruction sheets Patient Instructions: Pain Management (GEN), Precautions after Total Joint Replacement Surgery (GEN), Joint Replacement Surgery (GEN), Total Knee Replacement (GEN) Stand Alone Forms: General Discharge Instructions Follow-up/Referrals: Elizabeth Bay PA [Physician Space Operations Officer] - Discharge Medications: New aspirin 81 mg tablet,delayed release (DR/EC) 81 mg PO BID 14 Days Qty: 28 0RF meloxicam 15 mg tablet 15 mg PO DAILY Qty: 30 0RF Rx Instructions: Cut in half. Take 1/2 in morning and 1/2 at night. Take with food. Stop if stomach upset. prednisone 5 mg tablet 5 mg PO DAILY 21 Days Qty: 21 0RF oxycodone-acetaminophen 5-325 mg tablet 1 - 2 tablet PO Q4-6H MDD 6 PRN (Reason: pain) Qty: 30 0RF Held acetaminophen 500 mg Capsule 1,000 mg PO Q6H PRN (Reason: Pain) Hold Instructions: Resume on 06/22/23. Do not take more than 3,000 mg in 24 hours. Your Oxycodone has 325 mg tylenol in it.
== END 2023-06-16 13:30 | disposition home or self-care (01) ==
LOC: ANHSURGERY 10:12 → ANH3MED 16:32
PROVIDERS: Physician Assistant Surgical; PCP Family Medicine; Visit Provider Orthopaedic Surgery
PROC: (CPT 27447; principal; 2023-06-15 12:00)
DX: M17.12 Unilateral primary osteoarthritis, left knee (principal); G89.18 Other acute postprocedural pain; Z79.82 Long term (current) use of aspirin; E66.9 Obesity, unspecified; Z68.35 Body mass index [BMI] 35.0-35.9, adult
CPT/HCPCS: 27447; 64447; 36415; 73560; 80048; 85025; 86850; 86900; 86901; 97110; 97161; 97165; 97530; A9270; C1713; C1776; J0171; J0690; J1100; J1170; J1885; J2250; J2270; J2405; J2704; J2795; J3010; J7120; J7512

== ENCOUNTER 2023-07-15 10:51 | Outpatient (CLI) | payer MEDICARE, SELFPAY ==
--- NOTE | ~2023-07-15 | CT_ITS ---
EXAMINATION: CT LE RT wo con DATE: 07/15/2023 11:12 INDICATION: Unilateral primary osteoarthritis, right knee. TECHNIQUE: Computed tomography (CT) of the right lower limb was performed without intravenous contras t. Automated exposure control and iterative reconstruction technique were employed. The dose-length p roduct was 1698.37 mGy-cm. COMPARISON: Right knee radiographs 01/29/2023 FINDINGS: There is a total right hip arthroplasty in near-anatomic alignment. Right knee demonstrates varus angulation. No fracture. There is severe osteoarthritis of medial and patellofemoral compartme nts and moderate osteoarthritis of lateral compartment. No knee joint effusion. IMPRESSION: 1. Severe right knee osteoarthritis. 2. Total right hip arthroplasty in near-anatomic alignment. Reviewed, dictated and finalized at location A.
== END 2023-07-15 10:52 | disposition home or self-care (01) ==
LOC: ANHIMG 10:53
PROVIDERS: PCP Family Medicine; Visit Provider Orthopaedic Surgery
DX: Z01.818 Encounter for other preprocedural examination (principal); M17.11 Unilateral primary osteoarthritis, right knee
CPT/HCPCS: 73700

== ENCOUNTER 2023-09-17 07:52 | Outpatient (CLI) | payer MEDICARE, SELFPAY ==
[2023-09-17 08:35] LABS: Albumin Level 4.6 g/dL (3.5-5.1); Estimated Glomerular Filt Rate > 60; Glucose 97 mg/dL (65-110)
[2023-09-17 08:38] LABS: Hemoglobin A1C 5.9 % (<5.7)
[2023-09-17 08:48] LABS: Basophils Percent Auto 0.7 % (0.2-1.2); Eosinophils Absolute Auto 0.2 K/mm3 (0-0.3); Eosinophils Percent Auto 3.1 % (0-4.4); Hematocrit 42.6 % (42.0-52.0); Hemoglobin 13.6 g/dL (14.0-18.0); Immature Granulocyte Absolute 0.02 K/mm3 (0.00-0.031); Immature Granulocyte Percent A 0.3 % (0-0.5); Lymphocytes Absolute Auto 2.48 K/mm3 (0.9-3.2); Lymphocytes Percent Auto 40.7 % (18.3-44.2); Mean Corpuscular HGB Conc 31.9 g/dl (32-36); Mean Corpuscular Hemoglobin 28.6 pg (26-34); Mean Corpuscular Volume 89.7 fl (80-100); Mean Platelet Volume 10.1 fl (7.4-10.4); Monocytes Absolute Auto 0.5 K/mm3 (0.1-0.6); Monocytes Percent Auto 8.4 % (2.6-8.5); Neutrophils Absolute Auto 2.9 K/mm3 (1.3-6.7); Neutrophils Percent Auto 46.8 % (45.5-73.1); Platelet Count Result 282 k/mm3 (150-375); Red Blood Count 4.75 M/mm3 (4.6-6.20); Red Cell Distribution Width 13.2 % (11.5-14.5); White Blood Count 6.1 K/mm3 (4.5-10.0)
[2023-09-17 08:59] LABS: Urine Cotinine NEGATIVE
[2023-09-17 09:35] LABS: MRSA (PCR) NOT DETECTED (NOT DETECTE)
== END 2023-09-17 07:53 | disposition home or self-care (01) ==
LOC: ANHSURGERY 07:55
PROVIDERS: PCP Family Medicine; Visit Provider Orthopaedic Surgery
DX: M17.11 Unilateral primary osteoarthritis, right knee (principal); Z01.818 Encounter for other preprocedural examination
CPT/HCPCS: 80307; 82040; 82565; 82947; 83036; 85025; 86850; 86900; 86901; 87641

== ENCOUNTER 2023-09-21 00:07 | Day surgery (SDC) | payer MEDICARE, SELFPAY ==
--- NOTE | 2023-09-16 14:19 | PC.NURSE ---
Report to the Outpatient Waiting Room, entrance under the green pavilion located off [facility], at time __1000 on date _09/21/23 . Planned Procedure Time: _1200 PM . Time changes happen often and if your time is changed the preop area will call you the afternoon before. - You and your visitor will be asked to self-screen and do not enter if you have any COVID symptoms. - A mask is optional within the hospital at this time. Patients may have clear liquids (water, carbonated beverages, clear teas, apple juice) until 3 hours prior to surgery(9:00 AM) with a maximum of 20 ounces. - No food from midnight until time of surgery - Infants may have breast milk until 4 hours before surgery, infant formula 6 hours prior to surgery. - Children will be allowed to drink immediately following surgery. If applicable, please bring a bottle or sippy cup to assist with drinking. Juice, water, soda, and popsicles are readily available. For infants on formula, please bring formula the day of surgery. Pacifiers are allowed. Take the following medications with a SIP of water the morning of surgery: ___NONE DO NOT STOP ANY OF YOUR OTHER PRESCRIPTION MEDICATIONS PRIOR TO SURGERY ?EXCEPT THE FOLLOWING Medications to discontinue per physician NONE Please no make-up, nail georgian, hairspray, perfume, deodorant, or body powder the day of surgery. No jewelry (including any body piercings) or valuables the day of surgery, leave them at home. Please take a shower or bath the night before, or the morning of, surgery with an antibacterial soap. Wear comfortable, loose fitting clothing. Children are encouraged to wear pajamas. - Jewelry must be removed prior to entering the operating room. Rings and piercings that are not removed may be cut off. - The hospital will not accept responsibility for valuables. - Please leave all valuables, including medications, at home the day of surgery. If you are going home after surgery, a licensed city driver must drive you home. - NO public transportation without another adult if you receive anesthesia. - We recommend that an adult stay with you for 24 hours following discharge. - We also recommend that you do not drive, make important decision, drink alcoholic beverages, or take any drugs that were not prescribed by your health care provider for at least 24 hours after your discharge time. Follow any additional instructions given to you from your surgeon. If you or anyone in your household have experienced Covid symptoms in the past week, please notify your surgeon or the nurse liaison at the phone number below for possible testing. Telephone instructions given to __PATIENT and asked if any additional questions and then verbalized understanding. Patient advised to call surgeon office or pre surgery nurse liaison [phone] if any additional questions.
[2023-09-16 14:26] VITALS: BMI 35.4
[2023-09-21] VITALS (13 sets, daily range): BP systolic 102–172; BP diastolic 58–83; PULSE 66–82; RESP 12–18; TEMP 35.9–36.8; O2SAT 94–100
--- NOTE | ~2023-09-21 | XR_ITS ---
EXAMINATION: XR_KNEE1-2VRT_CR DATE: 09/21/2023 15:18 INDICATION: Total right knee arthroplasty. Postop. TECHNIQUE: 2 views of right knee were obtained. COMPARISON: Right knee radiographs 01/29/2023 FINDINGS: There is a total right knee arthroplasty with patellar resurfacing in near-anatomic alignme nt. No fracture. There is gas in the knee joint and soft tissues, consistent with recent surgery. IMPRESSION: 1. Total right knee arthroplasty in near-anatomic alignment. Reviewed, dictated and finalized at location A.
[2023-09-21] MEDS: LACTATED RINGERS 1,000 ML 30 ML IV CONT ×2 (10:50→14:47)
[2023-09-21] MEDS: ACETAMINOPHEN 500 MG TABLET 1000 MG PO (10:55)
[2023-09-21] MEDS: TRANEXAMIC ACID 1,000MG/ISO100 1,000 MG/100 ML BAG 200 MG IVPB (10:56)
--- NOTE | 2023-09-21 11:50 | WPDHPUPDATE1 ---
History and Physical Update Update Date/Time: 09/21/23 11:50 History and Physical has been reviewed, including an updated exam of the patient. There are NO changes in the patient's condition. Risks, benefits, and alternatives have been discussed and questions answered. Patient agrees to proceed with procedure.
--- NOTE | 2023-09-21 12:14 | WPDANESEPPF ---
Anes - Initial Pre Proc Eval Procedure: Operation Date: 09/21/23 12:00 Proposed Procedures p Right Custom Total Knee Arthroplasty - Mayito Matias MD Date/Time: 09/21/23 12:14 Surgeon: Mayito Matias MD Pre Op Diagnosis: primary oa right knee Patient Data Age: 67 Gender: M Height: 1.73 m Weight: 107.8 kg Last Vital Signs Temp 36.5 C 09/21/23 10:18 Pulse 66 09/21/23 10:18 Resp 18 09/21/23 10:18 BP 127/66 09/21/23 10:18 Pulse Ox 99 09/21/23 10:18 O2 Del Method Room Air 09/21/23 10:18 Allergies Allergy/AdvReac Type Severity Reaction Status Date / Time No Known Allergies Allergy Verified 09/21/23 10:22 Home Medications Medication Instructions Recorded Confirmed Type No Home Medications 09/16/23 09/21/23 History Patient hx anesthesia problems: none Family hx anesthesia problems: none Results Review: All pre-operative results and documents have been reviewed as part of the pre-operative evaluation. [facility] Past Medical History Medical History Adult BMI 39.0-39.9 kg/sq m BMI 38.0-38.9,adult BMI greater than 40 Bronchitis No pertinent past medical history Osteoarthritis of left knee Osteoarthritis of right knee Surgical History Surgical History History of colonoscopy History of right hip replacement Hx laparoscopic cholecystectomy Status post total left knee replacement (~06/15/23) Family History Family History Sibling Diabetes mellitus Grandparent Diabetes mellitus Father Asthma Cancer Mother Tobacco abuse Lung cancer Social History Social History Smoking status: Never smoker Second hand tobacco smoke exposure: Yes Additional smoking assessment comments: DENIES ANY FORM OF TOBACCO USE Alcohol intake: never Substance use: never Substance use type: does not use Do You Feel Safe in your Home?: Yes Lack of Transportation: No Lack of Food: Never True Current Housing: I Have Housing Concerned About Future Housing: No Difficulty Paying Gas/Electric Bills: No Difficulty Paying for Meds: No Currently Unemployed: No Education: Master's Degree or Higher Difficulty w/ Childcare or Family Care: No Living arrangements: with family Occupation/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 Informed Consent: The patient's anesthetic plan and its attendant risks and benefits were discussed with the patient/family/POA. Questions were solicited and answers provided to the satisfaction of the patient/family/POA.
[2023-09-21] MEDS: ceFAZolin 2 GM/D5W 50 ML 2 GM/50 ML BAG IVPB ×2 (12:23→20:18)
[2023-09-21] MEDS: SODIUM CHLORIDE 0.9% IV 37.7 ML, MORPHINE SULFATE INJ (*CRX) 2 MG, ROPivacaine HCL 1% 2... INFILTRATE (12:57)
[2023-09-21] MEDS: GENTAMICIN BONE CEMENT REFOBACIN 1 EACH TOPICAL (13:38)
[2023-09-21] MEDS: HYDROmorphone HCL INJ (*CRX) 1 MG/ML SYR 0.5 MG IV PUSH ×2 (14:54→15:10)
--- NOTE | 2023-09-21 15:27 | SUR.PHASEI ---
1527: Simple mask removed.
--- NOTE | 2023-09-21 16:26 | ADMGEN ---
This patient, Rodrick Harding, was admitted to Medical Room 250-01. Patient/family oriented to hospital policies and general routines including ID bracelet, bed and alarms, visiting hours, pain management, procedures, bathroom and other care routines, personal items, smoking policy, room service/diet, and visiting hours. Information on how to activate the Rapid Response Team has been discussed. Patient/Family are encouraged to report perceived risks to care and to ask questions if they do not understand what they are told or what they should do.
[2023-09-21] MEDS: predniSONE 5 MG TABLET PO (17:04)
[2023-09-21] MEDS: SENNA/DOCUSATE SODIUM TABLET 2 TAB PO (17:04)
[2023-09-21] MEDS: ACETAMINOPHEN 325 MG TABLET 650 MG PO ×2 (17:04→23:35)
[2023-09-21] MEDS: ASPIRIN 81 MG ENTERIC TABLET PO (20:17)
[2023-09-21] MEDS: FAMOTIDINE 20 MG TABLET PO (20:18)
[2023-09-22 01:00] VITALS: BP 132/60; PULSE 84; RESP 16; TEMP 36.6; O2SAT 98
[2023-09-22] MEDS: ceFAZolin 2 GM/D5W 50 ML 2 GM/50 ML BAG IVPB ×2 (03:42→11:42)
[2023-09-22 05:32] LABS: Basophils Percent Auto 0.2 % (0.2-1.2); Hematocrit 37.9 % (42.0-52.0); Hemoglobin 12.4 g/dL (14.0-18.0); Immature Granulocyte Absolute 0.07 K/mm3 (0.00-0.031); Immature Granulocyte Percent A 0.5 % (0-0.5); Lymphocytes Absolute Auto 1.63 K/mm3 (0.9-3.2); Lymphocytes Percent Auto 12.2 % (18.3-44.2); Mean Corpuscular HGB Conc 32.7 g/dl (32-36); Mean Corpuscular Hemoglobin 29.1 pg (26-34); Mean Platelet Volume 9.9 fl (7.4-10.4); Monocytes Percent Auto 7.1 % (2.6-8.5); Neutrophils Absolute Auto 10.7 K/mm3 (1.3-6.7); Platelet Count Result 263 k/mm3 (150-375); Red Blood Count 4.26 M/mm3 (4.6-6.20); Red Cell Distribution Width 13.2 % (11.5-14.5); White Blood Count 13.4 K/mm3 (4.5-10.0)
[2023-09-22 05:45] LABS: Anion Gap 10 mmol/L (4-12); Blood Urea Nitrogen 21 mg/dL (9-20); Calcium 8.9 mg/dL (8.4-10.2); Carbon Dioxide 26 mmol/L (22-30); Chloride 101 mmol/L (98-107); Estimated CRCL calculation 70 ml/min; Estimated Glomerular Filt Rate > 60; Glucose 113 mg/dL (65-110); Potassium 4.6 mmol/L (3.4-5.0); Sodium 137 mmol/L (137-145)
[2023-09-22] MEDS: ACETAMINOPHEN 325 MG TABLET 650 MG PO ×2 (06:02→11:42)
[2023-09-22 06:11] VITALS: BP 120/70; PULSE 78; RESP 16; TEMP 36.8; O2SAT 98
[2023-09-22 08:40] VITALS: BP 135/63; PULSE 76; RESP 16; TEMP 36.4; O2SAT 100
[2023-09-22] MEDS: SENNA/DOCUSATE SODIUM TABLET 2 TAB PO (08:41)
[2023-09-22] MEDS: FAMOTIDINE 20 MG TABLET PO (08:41)
[2023-09-22] MEDS: ASPIRIN 81 MG ENTERIC TABLET PO (08:41)
--- NOTE | 2023-09-22 09:57 | PM.DS ---
DS: Admitting Diagnosis Discharge Date 09/22/23 Admitting Diagnosis Knee arthritis. DS: Discharge Diagnosis Discharge Diagnosis (1) Status post total right knee replacement: Code(s): Z96.651 - Presence of right artificial knee joint Status: Acute Assessment and Plan: Postop day 1: Right total knee arthroplasty. Patient tolerated procedure well. No complications. Pain manageable with pain medication. No numbness or tingling. We had a lengthy discussion regarding postoperative wound care, limitations, expectations, and exercises. Patient shows good understanding. He has had initial physical therapy and is tolerating it well. DVT prophylaxis: 81 mg baby aspirin b.i.d. for 14 days. Pain medication: Percocet. Prednisone. Meloxicam. Patient has followup appointment with Dr. Matias in 3 weeks. DS: Summary Hospital Course Reason for hospitalization: Total knee arthroplasty Hospital Course: Patient tolerated procedure well. Has had initial PT/OT. Status at Discharge Functional status at discharge: uses cane/walker Overall status at discharge: patient is progressing back to baseline Time Spent with Patient Time attestation: Total time spent providing and/or coordinating discharge services: Exam Narrative: 67-year-old overweight male. Resting comfortably in chair. Alert and oriented x3. No acute distress. Wearing compression socks bilaterally. Dressing intact without drainage. Mild swelling. No ecchymosis. No erythema. No hematoma. Range of motion limited due to pain. Calf nontender. Neurologic status intact. No varicosities. Distal pulses palpable. Good quad function. DS: Data Data Completed and Pending Labs on day of discharge: Labs from last 24 hours 09/22/23 05:09 WBC 13.4 H RBC 4.26 L Hgb 12.4 L Hct 37.9 L MCV 89.0 MCH 29.1 MCHC 32.7 RDW 13.2 Plt Count 263 MPV 9.9 Immature Gran % (Auto) 0.5 Neut % (Auto) 80.0 H Lymph % (Auto) 12.2 L [place] % (Auto) 7.1 Eos % (Auto) 0.0 Baso % (Auto) 0.2 Lymph # (Auto) 1.63 [place] # (Auto) 1.0 H Eos # (Auto) 0.0 Baso # (Auto) 0.0 Abs Immat Gran (auto) 0.07 H Absolute Neuts (auto) 10.7 H Absolute Nucleated RBC 0.000 Nucleated RBC % 0.0 Sodium 137 Potassium 4.6 Chloride 101 Carbon Dioxide 26 Anion Gap 10 BUN 21 H Creatinine 1.10 Estim Creat Clear Calc 70 Estimated GFR > 60 Glucose 113 H Calcium 8.9 Discharge Plan Discharge Patient Disposition: Home, Self-Care Discharge Instructions: See green instruction sheets Patient Instructions: Antibiotic Form Stand Alone Forms: General Discharge Information, General Discharge Instructions Follow-up/Referrals: Elizabeth Bay PA [Physician Mold Maker Helper] - Discharge Medications: New aspirin 81 mg tablet,delayed release (DR/EC) 81 mg PO BID 14 Days Qty: 28 0RF meloxicam 15 mg tablet 15 mg PO DAILY Qty: 30 0RF Rx Instructions: Cut in half. Take 1/2 in morning and 1/2 at night. Take with food. Stop if stomach upset. prednisone 5 mg tablet 5 mg PO DAILY 21 Days Qty: 21 0RF oxycodone-acetaminophen 5-325 mg tablet 1 - 2 tablet PO Q4-6H MDD 6 PRN (Reason: pain) Qty: 30 0RF
--- NOTE | 2023-09-25 15:48 | W.PM.PROC2 ---
Procedure Note - Detailed Date of Procedure 09/21/23 Pre-op Diagnosis primary oa right knee Post-op Diagnosis Same Procedure Performed Custom total knee arthroplasty, right knee Surgeon Mayito Matias MD [employer]isher Elizabeth Bay PA-C Anesthesia General and Regional (Subsartorial block.) Findings Good bone quality. No releases required. Description of Procedure Preoperative antibiotics were given. The limb was prepped and draped in the usual sterile fashion with a well-padded tourniquet high on the thigh. The limb was exsanguinated and the tourniquet inflated to 300 mmHg. A longitudinal incision was created just medial to the patella. A trivector approach to the knee was performed. Arthrotomy was taken down through the joint capsule. No significant releases were initially taken. The femur was exposed and the F1 jig was applied. The coring tool was used to remove the cartilage for the F2 jig to sit flush with the bone. The jig was pinned and the distal cut carefully taken. Caliper measurements confirmed appropriate bony resections according to the preoperative templated plan. The F4 cutting jig for the femur was applied, at the standard rotation. The AP and anterior chamfer cuts were taken. The F5 jig was applied and the posterior chamfer cuts were taken. The tibia was prepared using the T1 jig, after removing cartilage for the jig contact points. Proper alignment was checked with the alignment han. The tibia was cut using the T1u guide. Gap balancing was performed. Gap measurements were taken and the knee was trialed. Excellent alignment and soft tissue balancing was confirmed. The posterior cruciate ligament was recessed along the proximal tibia. The patella was cut for resurfacing. Three lug holes were drilled. Meniscal remnants were removed. The trial components were assembled. Excellent range of motion and proper soft tissue balancing were confirmed throughout the full range of motion. Patellar tracking was excellent. The knee was copiously irrigated periodically throughout the procedure. The real implants were cemented into position. Excess cement was carefully removed. The wound was closed in layers with interrupted #1 Vicryl suture, 2-0 strata fix suture, 0 strata fix suture, 2-0 strata fix suture. Steri-Strips placed on the skin with the knee flexed. Sterile bulky dressing applied. The patient was brought to the recovery room in stable condition. There were no complications. Physician timber management assistant, Elizabeth Bay PA-C, required for surgery; including patient positioning, draping, tissue retraction, maintaining instrument position, cement removal, wound closure, and dressing placement. Implants Conform[employer] Custom total knee arthroplasty. Cemented. Cruciate retaining insert. Oval patella. Estimated Blood Loss 50 Urine Output 300 Drains No Complications No immediate complications Condition Stable Disposition PACU [facility] Billing Surgery - Charge Forward: Surgery Billing
== END 2023-09-22 12:25 | disposition home or self-care (01) ==
LOC: ANHSURGERY 10:04 → ANH2MED 16:13
PROVIDERS: Physician Assistant Surgical; PCP Family Medicine; Visit Provider Orthopaedic Surgery
PROC: (CPT 27447; principal; 2023-09-21 12:00)
DX: M17.11 Unilateral primary osteoarthritis, right knee (principal); E66.9 Obesity, unspecified; Z68.36 Body mass index [BMI] 36.0-36.9, adult
CPT/HCPCS: 27447; 36415; 73560; 80048; 85025; 97110; 97161; 97165; A9270; C1713; C1776; J0171; J0690; J1100; J1170; J1885; J2250; J2270; J2405; J2704; J2795; J3010; J7120; J7512

== ENCOUNTER 2023-10-17 10:24 | Emergency (ER) | payer MEDICARE, SELFPAY ==
--- NOTE | ~2023-10-17 | CT_ITS ---
EXAMINATION: CT brain wo con DATE: 10/17/2023 10:47 INDICATION: Vertigo TECHNIQUE: Computed tomography (CT) of the head was performed without intravenous contrast. The dose- length product was 605.33 mGy-cm. Automated exposure control and iterative reconstruction technique w ere employed. COMPARISON: None FINDINGS: Brain parenchymal volume normal for age. No acute intracranial hemorrhage, infarction, mass or mass effect. No ventriculomegaly or midline shift. There is intracranial atherosclerosis. Basilar cisterns are patent. Paranasal sinuses and mastoids are pneumatized. No depressed skull fractures. IMPRESSION: 1. No acute intracranial abnormality. Reviewed, dictated and finalized at location B.
[2023-10-17 10:29] VITALS: BP 140/71; PULSE 55; RESP 18; TEMP 36.7; O2SAT 96
--- NOTE | 2023-10-17 10:32 | ECG_ITS ---
Test Date: 2023-10-17 10:32:42 Measurements Intervals [place] Rate: 54 P: 33 OK: 167 QRS: -3 QRSD: 105 T: 1 QT: 420 QTc: 400 Interpretive Statements SINUS BRADYCARDIA MODERATE VOLTAGE CRITERIA FOR LVH, CONSIDER NORMAL VARIANT [MEETS CRITERIA IN ONE OF: R(aVL), S(V1), R(V5), R(V5/V6)+S(V1)] No previous ECG available for comparison Electronically Signed On 10-17-2023 14:45:49 CDT by Thierno Arriaza M.D.
[2023-10-17 10:33] VITALS: PULSE 55
--- NOTE | 2023-10-17 10:35 | ED.DIZZY ---
HPI - Dizziness General Chief Complaint: Dizziness Stated Complaint: dizzy Time Seen by Provider: 10/17/23 10:24 History of Present Illness HPI Narrative: 67-year-old male presents emergency department for evaluation for acute onset of vertigo. Patient states he did irrigate his ears last night had some discomfort on the right. Patient states when he went to bed he was not having any issues when he woke up at 3:00 a.m. to use the restroom is not having any issues but he woke up this morning approximately 8:00 a.m. he was having increased dizziness. Patient denies any focal numbness or weakness and denies any flaccid paralysis but states he feels dizzy and unstable when ambulating. Patient has no prior history of CVA, TIA, mi. Patient denies any prior history of vertigo. Related Data Allergies Allergy/AdvReac Type Severity Reaction Status Date / Time No Known Allergies Allergy Verified 10/17/23 10:33 Review of Systems Review of Systems: All systems reviewed & are unremarkable except as noted in HPI and below PMFSH Past Medical History Medical History Adult BMI 39.0-39.9 kg/sq m BMI 38.0-38.9,adult BMI greater than 40 Bronchitis No pertinent past medical history Osteoarthritis of left knee Osteoarthritis of right knee Surgical History Surgical History History of colonoscopy History of right hip replacement Hx laparoscopic cholecystectomy Status post total left knee replacement (~06/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) Family History Family History Sibling Diabetes mellitus Grandparent Diabetes mellitus Father Asthma Cancer Mother Tobacco abuse Lung cancer Social History Social History Smoking status: Never smoker Second hand tobacco smoke exposure: Yes Alcohol intake: never Substance use: never Substance use type: does not use Do You Feel Safe in your Home?: Yes Lack of Transportation: No Lack of Food: Never True Current Housing: I Have Housing Concerned About Future Housing: No Difficulty Paying Gas/Electric Bills: No Difficulty Paying for Meds: No Currently Unemployed: No Education: Master's Degree or Higher Difficulty w/ Childcare or Family Care: No Living arrangements: with family Occupation/Education: retired Additional occupation/education comments: Teacher-[employer] Gender identity (if verbalized by the patient): Male Sexual Orientation (if Verbalized by the Patient): Straight or Heterosexual Spiritual care concerns: No Exam Narrative: APPEARANCE: Well appearing, no pain, no distress, well-nourished. HEAD: normocephalic, atraumatic. EYES: PERRLA/EOMI, conjunctivae clear. NOSE: Normal no drainage EARS:TMS clear with good light reflex. THROAT: Pharynx clear, no exudate. NECK: Supple. No adenopathy, no masses. RESPIRATORY: Airway patent, respirations nonlabored. Clear to auscultation bilaterally, no rales, rhonchi, wheezing. CARDIOVASCULAR: Regular rate and rhythm without murmurs rubs or gallops. ABDOMINAL: Soft, nontender, nondistended, normal bowel sounds MUSCULOSKELETAL: Moves all extremities. Strength/ROM intact, No edema, No calf tenderness. NEURO: Alert. Cranial nerves II through XII intact. Grossly intact. Vertigo symptoms are induced with eyes open, improved with eyes closed SKIN: Warm, dry. Normal Color Course Course Emergency Course: Patient felt improved with vertigo treatment. Vital Signs Vital signs: Vital Signs Temperature 98.0 F 10/17/23 10:29 Pulse Rate 55 L 10/17/23 10:29 Respiratory Rate 18 10/17/23 10:29 Blood Pressure 140/71 10/17/23 10:29 Pulse Oximetry 96 10/17/23 10:29 Oxygen Delivery Room Air 10/17/23 10:29 Temperature 98.0 F 10/17/23 13
[2023-10-17 10:40] LABS: Basophils Percent Auto 0.7 % (0.2-1.2); Eosinophils Absolute Auto 0.1 K/mm3 (0-0.3); Eosinophils Percent Auto 2.3 % (0-4.4); Hematocrit 35.4 % (42.0-52.0); Hemoglobin 11.7 g/dL (14.0-18.0); Immature Granulocyte Absolute 0.03 K/mm3 (0.00-0.031); Immature Granulocyte Percent A 0.5 % (0-0.5); Lymphocytes Absolute Auto 1.64 K/mm3 (0.9-3.2); Lymphocytes Percent Auto 27.5 % (18.3-44.2); Mean Corpuscular HGB Conc 33.1 g/dl (32-36); Mean Corpuscular Hemoglobin 29.3 pg (26-34); Mean Corpuscular Volume 88.5 fl (80-100); Mean Platelet Volume 9.7 fl (7.4-10.4); Monocytes Absolute Auto 0.4 K/mm3 (0.1-0.6); Neutrophils Absolute Auto 3.8 K/mm3 (1.3-6.7); Platelet Count Result 231 k/mm3 (150-375); Red Cell Distribution Width 13.4 % (11.5-14.5)
[2023-10-17] MEDS: MECLIZINE HCL 25 MG TABLET PO (10:57)
[2023-10-17] MEDS: ONDANSETRON INJ 4 MG/2 ML VIAL IV PUSH (10:57)
[2023-10-17 10:59] LABS: Alanine Aminotransferase 18 U/L (6-50); Albumin Level 4.1 g/dL (3.5-5.1); Alkaline Phosphatase 85 U/L (38-126); Anion Gap 10 mmol/L (4-12); Aspartate Amino Transferase 23 U/L (17-59); Bilirubin,Total 0.6 mg/dL (0.2-1.3); Blood Urea Nitrogen 16 mg/dL (9-20); Calcium 8.8 mg/dL (8.4-10.2); Carbon Dioxide 23 mmol/L (22-30); Chloride 103 mmol/L (98-107); Estimated Glomerular Filt Rate > 60; Glucose 130 mg/dL (65-110); Potassium 4.3 mmol/L (3.4-5.0); Sodium 136 mmol/L (137-145)
[2023-10-17 12:30] VITALS: BP 127/75; PULSE 58; RESP 14; O2SAT 100
[2023-10-17 13:45] VITALS: BP 131/82; PULSE 80; RESP 19; TEMP 36.7; O2SAT 97
== END 2023-10-17 13:45 | disposition home or self-care (01) ==
PROVIDERS: Emergency Provider Emergency Medicine; PCP Family Medicine
DX: R42 Dizziness and giddiness (principal); M17.0 Bilateral primary osteoarthritis of knee
CPT/HCPCS: 36415; 70450; 80053; 85025; 93005; 96374; 99284; A9270; J2405

== ENCOUNTER 2023-11-04 14:02 | Outpatient (CLI) | payer MEDICARE, SELFPAY ==
--- NOTE | ~2023-11-04 | XR_ITS ---
XR knee RT 3V Ordering provider: Mayito Matias MD History: . KNEE REPLACEMENT FOLLOW UP . Comparison: January 29, 2023 FINDINGS: BONES: No acute fracture or dislocation. JOINT SPACES: Total knee arthropathy. SOFT TISSUES: Normal. IMPRESSION: No acute osseous abnormality right knee. Total knee arthroplasty. Reviewed, dictated and finalized at location A.
== END 2023-11-04 14:03 | disposition home or self-care (01) ==
LOC: ANHIMG 14:05
PROVIDERS: PCP Family Medicine; Visit Provider Orthopaedic Surgery
DX: Z96.651 Presence of right artificial knee joint (principal)
CPT/HCPCS: 73562

== ENCOUNTER 2024-12-07 11:45 | Outpatient (CLI) | payer MEDICARE, SELFPAY ==
--- NOTE | ~2024-12-07 | XR_ITS ---
EXAMINATION: XR hip RT 2V w AP pelvis, 12/07/2024 12:00 CDT HISTORY: LATERAL RT HIP PAIN x1 MONTH; RT ARTIFICAL HIP JOINT COMPARISON: No comparisons available. Findings: No acute fracture or malalignment. Arthroplasty intact Soft tissues unremarkable. Impression: No acute fracture or malalignment. Reviewed, dictated and finalized at location P. Impression: No acute fracture or malalignment.
== END 2024-12-07 11:46 | disposition home or self-care (01) ==
LOC: MICIMG 11:46
PROVIDERS: PCP Family Medicine; Visit Provider Orthopaedic Surgery
DX: Z96.641 Presence of right artificial hip joint (principal)
CPT/HCPCS: 73502

== ENCOUNTER 2024-12-13 10:49 | Outpatient (CLI) | payer MEDICARE, SELFPAY ==
[2024-12-13 12:32] LABS: CRP 0.7 mg/dL (<1.0)
== END 2024-12-13 10:50 | disposition home or self-care (01) ==
PROVIDERS: PCP Family Medicine; Visit Provider Orthopaedic Surgery
DX: Z96.641 Presence of right artificial hip joint (principal); T84.84XA Pain due to internal orthopedic prosthetic devices, implants and grafts, initial encounter
CPT/HCPCS: 36415; 85652; 86140